=== PATIENT | male | born 1955 | race Caucasian/White ===

== ENCOUNTER 2023-03-31 22:35 | Emergency (ER) | payer OTHER ==
[2023-03-31 23:14] LABS: Hemoglobin 12.9 g/dL (13.5-17.5); Mean Corpuscular Volume 90.9 fl (81.2-95.1); Red Blood Cell (RBC) Count 4.18 10x6/uL (4.32-5.72); White Blood Cell (WBC) Count 10.2 10x3/uL (3.5-10.5)
[2023-03-31 23:15] LABS: #Basophils 0.1 10x3/uL (0.0-0.2); #Eosinphils 0.1 10x3/uL (0.0-0.5); #Monocytes 1.4 10x3/uL (0.0-1.1); #Neutrophils 6.8 10x3/uL (1.5-8.4); %Basophils 1.1 % (0.0-2.0); %Eosinophils 1.4 % (0.0-6.0); %Lymphocytes 16.4 % (18.0-47.0); %Monocytes 13.6 % (0.0-10.0); %Neutrophils 66.5 % (40.0-75.0); Mean Corpuscular HGB CONC 33.9 g/dL (32.0-36.0); Mean Corpuscular Hemoglobin 30.9 pg (27.0-33.0); Mean Platelet Volume 10.3 fl (7.4-10.4); Platelet Count 229 10x3/uL (150-450); RBC Distribution Width 11.8 % (11.5-14.5)
[2023-03-31 23:24] LABS: Anion Gap 16 mmol/L (10-20); BUN (Urea Nitrogen) 14 mg/dL (8.4-25.7); Calc. Creatinine Clearance 0 mL/min (70-130); Calcium 8.4 mg/dL (7.8-10.44); Carbon Dioxide 21 mmol/L (23-31); Chloride 106 mmol/L (98-107); Estimated GFR 70; Glucose 109 mg/dL (80-115); Potassium 3.6 mmol/L (3.5-5.1); Sodium 139 mmol/L (136-145)
[2023-03-31 23:45] LABS: SARS-CoV-2 NAA Rapid Test Not Detected (NotDetected)
[2023-03-31] MEDS ORDERED: cefTRIAXone (ROCEPHIN) 1 GM VIAL ONE (23:48)
== END 2023-04-01 00:30 ==
LOC: CSHERS 22:35
DX: J44.9 Chronic obstructive pulmonary disease, unspecified (principal); J18.9 Pneumonia, unspecified organism; K21.9 Gastro-esophageal reflux disease without esophagitis; Z79.899 Other long term (current) drug therapy; Z20.822 Contact with and (suspected) exposure to COVID-19
CPT/HCPCS: 71045; 80048; 83880; 85025; 94640; 94760; 96374; J0696